=== PATIENT | female | born 1970 | race African-American/Black ===

== ENCOUNTER 2020-09-23 15:12 | Inpatient (IN) | payer BC ==
[~2020-09-23 15:12] MED LIST: Iopamidol-370 76% 500 ML 1 ML ONE
[2020-09-23] MEDS ORDERED: Ondansetron PF 4 MG/2 ML Vial ONE ×2 (15:46→21:36)
[2020-09-23] MEDS ORDERED: Lorazepam 2 MG/ML VIAL ONE (16:07)
[2020-09-23] MEDS ORDERED: Meclizine HCl 25 MG TAB ONE ×2 (16:09→23:12)
[2020-09-23 16:18] LABS: #Lymphocytes 1.6 thou/uL (1.20-3.40); #Monocytes 0.5 thou/uL (0.11-0.59); #Neutrophils 10.4 thou/uL (1.40-6.50); %Basophils 0.2 % (0.0-1.0); %Eosinophils 0.2 % (0.0-10.0); %Lymphocytes 12.4 % (21.0-51.0); %Monocytes 3.7 % (0.0-10.0); %Neutrophils 83.4 % (42.0-75.0); Mean Corpuscular HGB CONC 33.1 g/dL (32.0-36.0); Mean Corpuscular Hemoglobin 30.6 pg (27.0-31.0); Mean Corpuscular Volume 92.5 fL (78.0-98.0); Mean Platelet Volume 7.5 fL (7.4-10.4); Platelet Count 250 thou/uL (130-400); RBC Distribution Width 11.5 % (11.5-14.5); Red Blood Cell (RBC) Count 4.58 mill/uL (4.20-5.40); White Blood Cell (WBC) Count 12.5 thou/uL (4.8-10.8)
[2020-09-23 16:31] LABS: ALT (SGPT) 12 U/L (8-55); AST (SGOT) 16 U/L (5-34); Albumin 4.1 g/dL (3.5-5.0); Alkaline Phosphatase 86 U/L (40-110); Anion Gap 14 mmol/L (10-20); BUN (Urea Nitrogen) 9 mg/dL (9.8-20.1); Bilirubin, Total 0.5 mg/dL (0.2-1.2); Calc. Creatinine Clearance 0 mL/min (70-130); Calcium 9.1 mg/dL (7.8-10.44); Carbon Dioxide 26 mmol/L (22-29); Chloride 103 mmol/L (98-107); Globulin 3.8 g/dL (2.4-3.5); Glucose 126 mg/dL (70-105); Lipase 12 U/L (8-78); Protein, Total 7.9 g/dL (6.0-8.3); Sodium 140 mmol/L (136-145)
[2020-09-23 16:38] LABS: Potassium 2.9 mmol/L (3.5-5.1)
[2020-09-23 16:53] LABS: CKMB 0.9 ng/mL (0-6.6)
[2020-09-23] MEDS ORDERED: Aspirin 325 MG TAB ONE (17:27)
[2020-09-23 17:52] LABS: Magnesium 1.9 mg/dL (1.6-2.6)
[2020-09-23] MEDS ORDERED: Potassium Chloride 40 MEQ in Sodium Chloride 0.9% 250 ML 250 ML IVPB SCH (18:00)
[2020-09-23] MEDS ORDERED: hydrALAZINE 20 MG/ML VIAL SLOW IVP PRN (18:16)
[2020-09-23] MEDS ORDERED: Electrolyte Replacement Protocol 1 EACH FS SCH (18:30)
[2020-09-23] MEDS ORDERED: Meclizine HCl 25 MG TAB PO PRN (18:50)
[2020-09-23] MEDS ORDERED: Calcium Carbonate 500 MG ChewTAB PO PRN (18:50)
[2020-09-23] MEDS ORDERED: Acetaminophen 325 MG TAB PO PRN (18:50)
[2020-09-23] MEDS ORDERED: Labetalol HCl 100 MG/20 ML VIAL SLOW IVP PRN (18:51)
[2020-09-23] MEDS ORDERED: Meclizine HCl 25 MG TAB PO SCH (19:15)
[2020-09-23 19:16] LABS: Acetaminophen Less than 6.0 mcg/mL (10.0-30.0); Alcohol Less than 10 mg/dL (Less than 10); Salicylate Less than 8.0 mg/dL (15.0-30.0)
[2020-09-23] MEDS ORDERED: Magnesium 2 GM/50 ML 2 GM in Premix Bag 1 BAG IVPB SCH (20:45)
[2020-09-23] MEDS ORDERED: Magnesium 2 GM/50 ML BAG (IN WATER) ONE (20:58)
[2020-09-23 20:59] LABS: Bilirubin Negative (Negative); Blood, Urine Negative (Negative); Clarity Clear (Clear); Glucose, Urine (Dipstick) Normal (Negative); Ketone, Urine Negative (Negative); Leukocyte Negative Leu/uL (Negative); Nitrite Negative (Negative); Protein, Urine (Dipstick) 20 mg/dL (Neg-Trace); Urobilinogen Normal mg/dL (Less than 2)
[2020-09-23 21:05] LABS: SARS-CoV-2 NAA Rapid Test Not Detected (NotDetected)
[2020-09-23] MEDS ORDERED: Lisinopril 10 MG TAB ONE (21:07)
[2020-09-23] MEDS: Lisinopril 10 MG TAB PO SCH (21:13)
[2020-09-23] MEDS ORDERED: Ondansetron ODT 4 MG TAB PO PRN (21:16)
[2020-09-23 21:31] LABS: BHCG - Serum Negative (NEGATIVE); Pregs Control Background? CLEAR/WHITE (CLR/WHITE); Pregs Control Bar Appear? YES (CONTROL BAR)
[2020-09-23] MEDS: Ondansetron PF 4 MG/2 ML Vial IVP PRN (21:45)
[2020-09-23] MEDS ORDERED: NS 0.9% w/ 40 MEQ KCL 500 ML IV SCH (22:00)
[2020-09-23] MEDS: NS 0.9% w/ 40 MEQ KCL 1,000 ML IV SCH (22:27)
[2020-09-23] MEDS: Meclizine HCl 25 MG TAB PO SCH (23:21)
[2020-09-24] MEDS ORDERED: Ondansetron PF 4 MG/2 ML Vial ONE (01:59)
[2020-09-24] MEDS: Ondansetron PF 4 MG/2 ML Vial IVP PRN (03:25)
[2020-09-24 04:29] LABS: #Lymphocytes 1.6 thou/uL (1.20-3.40); #Monocytes 0.6 thou/uL (0.11-0.59); #Neutrophils 8.6 thou/uL (1.40-6.50); %Eosinophils 0.2 % (0.0-10.0); %Lymphocytes 14.5 % (21.0-51.0); %Monocytes 5.2 % (0.0-10.0); %Neutrophils 80.1 % (42.0-75.0); Hemoglobin 13.4 g/dL (12.0-16.0); Mean Corpuscular Hemoglobin 30.8 pg (27.0-31.0); Mean Corpuscular Volume 93.3 fL (78.0-98.0); Mean Platelet Volume 7.6 fL (7.4-10.4); Platelet Count 260 thou/uL (130-400); RBC Distribution Width 11.7 % (11.5-14.5); Red Blood Cell (RBC) Count 4.35 mill/uL (4.20-5.40); White Blood Cell (WBC) Count 10.7 thou/uL (4.8-10.8)
[2020-09-24 04:48] LABS: Phosphorus 2.9 mg/dL (2.3-4.7)
[2020-09-24 04:51] LABS: Anion Gap 10 mmol/L (10-20); BUN (Urea Nitrogen) 7 mg/dL (9.8-20.1); Calc. Creatinine Clearance 0 mL/min (70-130); Calcium 8.9 mg/dL (7.8-10.44); Carbon Dioxide 24 mmol/L (22-29); Chloride 108 mmol/L (98-107); Glucose 102 mg/dL (70-105); Potassium 4.1 mmol/L (3.5-5.1); Sodium 138 mmol/L (136-145)
[2020-09-24 05:01] LABS: Troponin I 0.012 ng/mL (< 0.028)
[2020-09-24] MEDS ORDERED: Magnesium 2 GM/50 ML 2 GM in Premix Bag 1 BAG IVPB SCH (06:15)
[2020-09-24] MEDS ORDERED: Meclizine HCl 25 MG TAB ONE ×2 (07:50→13:38)
[2020-09-24] MEDS: Meclizine HCl 25 MG TAB PO SCH ×3 (08:03→20:12)
[2020-09-24 08:20] LABS: Magnesium 2.3 mg/dL (1.6-2.6)
[2020-09-24] MEDS: Lisinopril 10 MG TAB PO SCH ×2 (13:10→20:11)
[2020-09-24] MEDS ORDERED: Amlodipine 10 MG TAB PO SCH (14:30)
[2020-09-24 15:15] VITALS: BMI 34.1
[2020-09-24] MEDS: NS 0.9% w/ 40 MEQ KCL 1,000 ML IV SCH (17:56)
[2020-09-25 05:35] LABS: Anion Gap 8 mmol/L (10-20); BUN (Urea Nitrogen) 10 mg/dL (9.8-20.1); Calc. Creatinine Clearance 148 mL/min (70-130); Calcium 8.5 mg/dL (7.8-10.44); Carbon Dioxide 27 mmol/L (22-29); Chloride 106 mmol/L (98-107); Glucose 94 mg/dL (70-105); Potassium 3.9 mmol/L (3.5-5.1); Sodium 137 mmol/L (136-145)
[2020-09-25] MEDS: Meclizine HCl 25 MG TAB PO SCH ×2 (05:54→14:30)
[2020-09-25] MEDS ORDERED: Sodium Chloride 0.9% 500 ML IV SCH (06:45)
[2020-09-25 07:08] LABS: Bacteria/HPF 3+ HPF (None Seen); Bilirubin Negative (Negative); Blood, Urine Trace (Negative); Clarity Clear (Clear); Glucose, Urine (Dipstick) Normal (Negative); Ketone, Urine Negative (Negative); Leukocyte 250 Leu/uL (Negative); Nitrite Negative (Negative); Protein, Urine (Dipstick) Negative (Neg-Trace); RBC/HPF 0-3 HPF (0-3); Squamous Epithelial 0-3 HPF (0-3); Urobilinogen Normal mg/dL (Less than 2)
[2020-09-25] MEDS: Lisinopril 10 MG TAB PO SCH (08:56)
[2020-09-25] MEDS ORDERED: Amlodipine 5 MG TAB PO SCH (09:00)
[2020-09-25] MEDS ORDERED: cefTRIAXone\\ROCEPHIN 1 GM in Sodium Chloride 0.9% 100 ML IVPB SCH (09:00)
[2020-09-25] MEDS ORDERED: Prevnar 13-Val Conj/PF 0.5 ML SYRINGE IM ONE (15:30)
[2020-09-25 15:31] VITALS: BP 139/86; TEMP 97.5
== END 2020-09-25 18:55 | disposition home or self-care (01) | DRG 305 ==
LOC: ERS 15:12 → ERHOLD 18:36 → 2SE 09-24 14:30 → OBSVTOIN 09-25 14:17
PROVIDERS: ADMIT Internal Medicine; ATTEND Internal Medicine
DX: I16.0 Hypertensive urgency (principal); N39.0 Urinary tract infection, site not specified; Z20.822 Contact with and (suspected) exposure to COVID-19; I10 Essential (primary) hypertension; E86.0 Dehydration; E87.6 Hypokalemia; E83.42 Hypomagnesemia; Z79.899 Other long term (current) drug therapy
CPT/HCPCS: 0240U; 36415; 36416; 70496; 70498; 70551; 71045; 80048; 80053; 80307; 81001; 81003; 82553; 83690; 83735; 84100; 84484; 84703; 85025; 87086; 93005; 93306; 96365; 96375; 96376; G0378; J0696; J2060; J2405; J3475; J3480; J3490; J7050; Q9967